=== PATIENT | female | born 1945 | race Caucasian/White ===

== ENCOUNTER → 2023-09-24 10:30 | Outpatient (REF) | payer MEDICARE, BC, SELFPAY | LOC: RAD 10:30 | PROVIDERS: ATTENDING PHYSICIAN Urology; FAMILY PHYSICIAN Family Medicine | DX: N28.89 Other specified disorders of kidney and ureter (principal) | CPT/HCPCS: 78707; A9539 ==

== ENCOUNTER → 2023-11-21 12:39 | Outpatient (REF) | payer MEDICARE, BC, SELFPAY ==
[2023-11-21 14:09] LABS: % Basophils 0.5 % (0-2); % Eosinophils 0.3 % (0-6); % Immature Granulocytes 0.4 % (0-0.5); % Lymphocytes 14.6 % (20.5-51.1); % Monocytes 12.6 % (1.7-9.3); % Neutrophils 71.6 % (42.2-75.2); Absolute Lymphocytes 1.1 10^3/uL (1.2-3.4); Absolute Neutrophils 5.6 10^3/uL (1.4-6.5); Hematocrit 39.7 % (37.0-47.0); Hemoglobin 13.1 g/dL (12.0-16.0); Mean Corpuscular Hgb 29.9 pg (27.0-31.0); Mean Corpuscular Volume 90.6 fL (81.0-99.0); Mean Platelet Volume 9.3 fL (7.4-10.4); Nucleated Red Blood Cells % 0 %; Platelet Count 335 10^3/uL (130-400); Red Blood Cell Count 4.38 10^6/uL (4.20-5.40); Red Cell Dist. Width 12.7 % (11.5-14.5); White Blood Cell Count 7.8 10^3/uL (4.8-10.8)
[2023-11-21 14:31] LABS: ALT (SGPT) 12 U/L (0-35); AST (SGOT) 24 U/L (14-36); Albumin 3.9 g/dl (3.5-5.0); Alkaline Phosphatase 74 U/L (38-126); Blood Urea Nitrogen 19 mg/dl (7-17); Carbon Dioxide 28 mmol/L (22-30); Chloride 104 mmol/L (98-107); Glucose 108 mg/dl (70-99); Lipase 75 U/L (23-300); Potassium 4.1 mmol/L (3.5-5.1); Sodium 138 mmol/L (135-145); Total Bilirubin 0.7 mg/dl (0.2-1.3); Total Protein 6.6 g/dl (6.3-8.2); eGFR > 60.00
== END ==
LOC: RAD 12:39
PROVIDERS: ATTENDING PHYSICIAN Family Medicine
DX: R10.32 Left lower quadrant pain (principal)
CPT/HCPCS: 36415; 74176; 80053; 83690; 85025

== ENCOUNTER → 2023-12-10 14:06 | Outpatient (REF) | payer MEDICARE, BC, SELFPAY | LOC: RAD 14:06 | PROVIDERS: ATTENDING PHYSICIAN Family Medicine | DX: R10.9 Unspecified abdominal pain (principal) | CPT/HCPCS: 74022 ==

== ENCOUNTER → 2024-01-09 17:38 | Outpatient (REF) | payer MEDICARE, BC, SELFPAY | LOC: WDC 17:38 | PROVIDERS: ATTENDING PHYSICIAN Family Medicine | DX: Z12.31 Encounter for screening mammogram for malignant neoplasm of breast (principal) | CPT/HCPCS: 77063; 77067 ==

== ENCOUNTER → 2025-01-13 10:25 | Outpatient (REF) | payer MEDICARE, BC, SELFPAY | LOC: RAD 10:25 | PROVIDERS: ATTENDING PHYSICIAN Family Medicine | DX: M85.89 Other specified disorders of bone density and structure, multiple sites (principal); Z12.31 Encounter for screening mammogram for malignant neoplasm of breast | CPT/HCPCS: 77063; 77067; 77080 ==